=== PATIENT | female | born 1955 | race Two or more races ===

== ENCOUNTER 2017-12-01 08:49 | Outpatient (CLI) | payer OTHER ==
[~2017-12-01 08:49] MED LIST: DICLOFENAC POTA50 MG PO; LIPITOR20 MG PO; LISINOPRIL; NEURIN; ORPH100T PO; VERAPAMIL
== END 2017-12-01 09:00 | disposition home or self-care (01) ==
LOC: NUCLEAR 08:49
DX: C79.51 Secondary malignant neoplasm of bone (principal); Z85.3 Personal history of malignant neoplasm of breast
CPT/HCPCS: 78306; A9503

== ENCOUNTER 2022-04-15 08:44 | Emergency (ER) | payer OTHER ==
[~2022-04-15] VITALS: Ht 152.4 cm; Wt 47.2 kg
[2022-04-15] MEDS ORDERED: ZESTRIL2.5 MG PO (09:08)
[2022-04-15] MEDS ORDERED: PRAVASTATIN SOD10 MG PO (09:08)
[2022-04-15] MEDS ORDERED: GRALISE600 MG PO (09:08)
[2022-04-15] MEDS ORDERED: KETO10TA2 PO (11:31)
[2022-04-15] MEDS ORDERED: NORFLEX100MG PO (11:31)
== END 2022-04-15 13:53 | disposition home or self-care (01) ==
LOC: ER 08:44
DX: M25.511 Pain in right shoulder (principal)

== ENCOUNTER 2023-08-20 10:30 | Emergency (ER) | payer OTHER ==
[~2023-08-20] VITALS: Ht 162.6 cm; Wt 68.0 kg
[~2023-08-20 10:30] MED LIST changes: +GRALISE600 MG PO; +KETO10TA2 PO; +NORFLEX100MG PO; +PRAVASTATIN SOD10 MG PO; +ZESTRIL2.5 MG PO
[2023-08-20] MEDS ORDERED: NIFEDIPINE20 MG (10:43)
[2023-08-20] MEDS ORDERED: ORPHENADRINE CITRATE 30 MG/ML AMPUL IM ONE (11:30)
== END 2023-08-20 14:43 | disposition home or self-care (01) ==
LOC: ER 10:31
DX: M79.642 Pain in left hand (principal); Z88.8 Allergy status to other drugs, medicaments and biological substances; Z85.9 Personal history of malignant neoplasm, unspecified; I10 Essential (primary) hypertension
CPT/HCPCS: 73110; 73130; 96372; 99283; J2360